=== PATIENT | male | born 1975 | race African-American/Black ===

== ENCOUNTER 2022-12-10 16:44 | Emergency (ER) | payer MEDICAID, OTHER, SELFPAY ==
[2022-12-10 17:27] VITALS: BP 139/86; PULSE 92; RESP 18; TEMP 36.8; O2SAT 96; BMI 38.2
--- NOTE | 2022-12-10 17:30 | ED_ITS ---
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 Patient reports he has had the rash on and off for 3 years. He had when he was in [place] as well as abdomen her public. He states he has had multiple tests and ?they could not tell me what it is. ? Patient reports that currently the rash has been there for the last 3 days. He states it does not really itch or hurt Denies any urethral discharge No testicular pain or swelling Denies any new sexual partners <Vernon Strickland - Last Filed: 12/10/22 20:48> Related Data Home medications: Previous Rx's Medication Instructions Recorded valacyclovir 1 gram tablet 1,000 mg PO TID #21 tabs 12/10/22 <GABBI Santamaria - Last Filed: 12/10/22 17:31> Allergies/Adverse reactions: Allergies Allergy/AdvReac Type Severity Reaction Status Date / Time No Known Allergies Allergy Verified 12/10/22 17:28 <GABBI Santamaria - Last Filed: 12/10/22 17:31> Review of Systems Constitutional: Constitutional: Reports as per HPI, Denies chills and Denies fever(s) <Vernon Strickland - Last Filed: 12/10/22 20:48> Respiratory: Respiratory: Denies cough <Vernon Strickland - Last Filed: 0 12/10/22 20:48> Gastrointestinal: Gastrointestinal: Denies abdominal pain, Denies constipation and Denies vomiting <Vernon Strickland - Last Filed: 12/10/22 20:48> Integumentary/Breasts: Comments: Reports rash to penis <Vernon Strickland - Last Filed: 12/10/22 20:48> Neurologic: Denies focal weakness <Vernon Strickland - Last Filed: 12/10/22 20:48> PMFSH Social History Social History: Social History Advance Directives: No Advance Directives Information Provided: No <GABBI Santamaria - Last Filed: 12/10/22 17:31> Physical Exam Vital Signs: Vital Signs: Last Vital Signs Temp 98.2 F 12/10/22 17:27 Pulse 92 12/10/22 17:27 Resp 18 12/10/22 17:27 BP 139/86 12/10/22 17:27 Pulse Ox 96 12/10/22 17:27 O2 Del Method Room Air 12/10/22 17:27 BMI result Body Mass Index 38.2 <GABBI Santamaria - Last Filed: 12/10/22 17:31> Vital Signs: Last Vital Signs Temp 98.2 F 12/10/22 17:27 Pulse 92 12/10/22 17:27 Resp 18 12/10/22 17:27 BP 139/86 12/10/22 17:27 Pulse Ox 96 12/10/22 17:27 O2 Del Method Room Air 12/10/22 17:27 BMI result Body Mass Index 38.2 <Vernon Strickland - Last Filed: 12/10/22 20:48> Const: General: healthy appearing, comfortable, no acute distress, alert and awake <Vernon Strickland - Last Filed: 12/10/22 20:48> Nutritional Appearance: well nourished <Vernon Strickland - Last Filed: 12/10/22 20:48> Orientation/consciousness: patient oriented x3 <Vernon Strickland - Last Filed: 12/10/22 20:48> HEENT: Head: Yes normocephalic and Yes atraumatic <Vernon Strickland - Last Filed: 12/10/22 20:48> Resp: Effort & Inspection: normal respiratory effort, able to speak in complete sentences, no audible wheezes and not labored <Vernon Strickland - Last Filed: 12/10/22 20:48> Auscultation: clear to auscultation bilaterally <Vernon Strickland - Last Filed: 12/10/22 20:48> : Other: There are several skin colored vesicles on the dorsal surface of the penile shaft. No surrounding erythema, no discoloration. No penile discharge. No edema, no testicular tenderness or edema <Vernon Strickland - Last Filed: 12/10/22 20:48> Neuro: General: patient oriented x3 <Vernon Strickland - Last Filed: 12/10/22 20:48> Cognition (Neuro): normal cognition <Vernon Strickland - Last Filed: 12/10/22 20:48> Course Course Course Narrative: EVER-17:30pm - 47yoM who is [place]-speaking presenting to the ER with complaints of lesions/bump to the penile area for the past 3-4 days. Reports that he has had this in the past and has been worked up for although they never told him what it is. He denies any other symptoms related to this. Plan: Labs including syphilis, herpes, UA and gonorrhea chlamydia urine ordered at this time. Patient to be seen in [facility]. <GABBI Santamaria - Last Filed: 12/10/22 17:31> Medical Decision Making Medical Decision Making [facility] Narrative: The patient was tested for numerous STIs. His rash is mild. He will be treated for herpes simplex pending results due to the general vesicles. <Vernon Strickland - Last Filed: 12/10/22 20:48> Differential Diagnosis Herpes simplex virus Gonorrhea Chlamydia Molluscum contagiosum Syphilis <Vernon Strickland - Last Filed: 12/10/22 20:48> Lab Data Result Diagrams: 12/10/22 17:51 12/10/22 17:51 <GABBI Santamaria - Last Filed: 12/10/22 17:31> Labs: Lab Results 12/10/22 12/10/22 12/10/22 Range/Units 17:50 17:51 17:51 WBC 7.5 (4.8-10.8) X10*3/uL RBC 4.46 L (4.60-5.80) X10*6/uL Hgb 14.3 (14.0-18.0) g/dl Hct 42.9 (42.0-52.0) % MCV 96.2 (80.0-98.0) fL MCH 32.1 (27.0-33.0) pg MCHC 33.3 (31.0-36.0) g/dl RDW 12.2 (11.0-16.0) % Plt Count 226 (160-400) X10*3/uL MPV 10.4 (9.4-12.4) fL Immature Gran % (Auto) 0.3 (0.0-0.4) % Neut % (Auto) 46.8 (45-73) % Lymph % (Auto) 41.2 H (20-40) % [place] % (Auto) 9.3 (2-11) % Eos % (Auto) 1.9 (0-4) % Baso % (Auto) 0.5 (0-2) % Lymph # (Auto) 3.1 (1.2-4.9) X10*3/uL [place] # (Auto) 0.7 (0.1-1.2) X10*3/uL Eos # (Auto) 0.1 (0.0-0.4) X10*3/uL Baso # (Auto) 0.0 (0.0-0.2) X10*3/uL Abs Immat Gran (auto) 0.02 (0.00-0.03) X10*3/uL Absolute Neuts (auto) 3.5 (2.0-8.3) x10*3/uL Absolute Nucleated RBC 0.000 (0.0-0.012) X10*3/uL Nucleated RBC % (auto) 0.0 (0.0-0.2) /100WBC Sodium 139 (135-145) mmol/L Potassium 4.5 (3.3-5.1) mmol/L Chloride 105 (96-108) mmol/L Carbon Dioxide 23 (22-29) mmol/L Anion Gap 16 (12-20) BUN 19 H (9-16) mg/dL Creatinine 1.15 (0.5-1.4) mg/dL Estim Creat Clear Calc 93.2 Estimated GFR > 60 Random Glucose 103 (60-115) mg/dL Calcium 9.6 (8.4-10.2) mg/dL Magnesium 2.0 (1.6-2.6) mg/dL Total Bilirubin 0.9 (0.0-1.0) mg/dL AST 36 (5-37) U/L ALT 40 (0-40) U/L Alkaline Phosphatase 55 (39-117) U/L Total Protein 7.8 (6.5-8.0) g/dL Albumin 4.5 (3.5-5.0) g/dL Urine Color Yellow Urine Appearance Clear Urine pH 8.0 (5.0-9.0) Ur Specific [place] 1.020 (1.005-1.025) Urine Protein Negative (Neg-Trace) mg/dL Urine Glucose (UA) Negative (Negative) mg/dL Urine Ketones Negative (Negative) mg/dL Urine Blood Negative (Negative) Urine Nitrite Negative (Negative) Ur Leukocyte Esterase Negative (Negative) <GABBI Santamaria - Last Filed: 12/10/22 17:31> Lab Results 12/10/22 12/10/22 12/10/22 Range/Units 17:50 17:51 17:51 WBC 7.5 (4.8-10.8) X10*3/uL RBC 4.46 L (4.60-5.80) X10*6/uL Hgb 14.3 (14.0-18.0) g/dl Hct 42.9 (42.0-52.0) % MCV 96.2 (80.0-98.0) fL MCH 32.1 (27.0-33.0) pg MCHC 33.3 (31.0-36.0) g/dl RDW 12.2 (11.0-16.0) % Plt Count 226 (160-400) X10*3/uL MPV 10.4 (9.4-12.4) fL Immature Gran % (Auto) 0.3 (0.0-0.4) % Neut % (Auto) 46.8 (45-73) % Lymph % (Auto) 41.2 H (20-40) % [place] % (Auto) 9.3 (2-11) % Eos % (Auto) 1.9 (0-4) % Baso % (Auto) 0.5 (0-2) % Lymph # (Auto) 3.1 (1.2-4.9) X10*3/uL [place] # (Auto) 0.7 (0.1-1.2) X10*3/uL Eos # (Auto) 0.1 (0.0-0.4) X10*3/uL Baso # (Auto) 0.0 (0.0-0.2) X10*3/uL Abs Immat Gran (auto) 0.02 (0.00-0.03) X10*3/uL Absolute Neuts (auto) 3.5 (2.0-8.3) x10*3/uL Absolute Nucleated RBC 0.000 (0.0-0.012) X10*3/uL Nucleated RBC % (auto) 0.0 (0.0-0.2) /100WBC Sodium 139 (135-145) mmol/L Potassium 4.5 (3.3-5.1) mmol/L Chloride 105 (96-108) mmol/L Carbon Dioxide 23 (22-29) mmol/L Anion Gap 16 (12-20) BUN 19 H (9-16) mg/dL Creatinine 1.15 (0.5-1.4) mg/dL Estim Creat Clear Calc 93.2 Estimated GFR > 60 Random Glucose 103 (60-115) mg/dL Calcium 9.6 (8.4-10.2) mg/dL Magnesium 2.0 (1.6-2.6) mg/dL Total Bilirubin 0.9 (0.0-1.0) mg/dL AST 36 (5-37) U/L ALT 40 (0-40) U/L Alkaline Phosphatase 55 (39-117) U/L Total Protein 7.8 (6.5-8.0) g/dL Albumin 4.5 (3.5-5.0) g/dL Urine Color Yellow Urine Appearance Clear Urine pH 8.0 (5.0-9.0) Ur Specific [place] 1.020 (1.005-1.025) Urine Protein Negative (Neg-Trace) mg/dL Urine Glucose (UA) Negative (Negative) mg/dL Urine Ketones Negative (Negative) mg/dL Urine Blood Negative (Negative) Urine Nitrite Negative (Negative) Ur Leukocyte Esterase Negative (Negative) <Vernon O'Musselshell - Last Filed: 12/10/22 20:48> Discharge Plan Discharge Clinical Impression: Penile rash <GABBI Santamaria - Last Filed: 12/10/22 17:31> Patient Disposition: Home, Self-Care <GABBI Santamaria - Last Filed: 12/10/22 17:31> Instructions: Acute Rash (ED) <GABBI Santamaria - Last Filed: 12/10/22 17:31> Additional Instructions: Your test for multiple sexually transmitted infections including gonorrh ea, chlamydia, herpes, syphilis. We will call you if any of your results are positive. In the meantime take the valacyclovir which is an antiviral. If it is herpes it will help prevent the spread while we are waiting for the results <GABBI Santamaria - Last Filed: 12/10/22 17:31> Prescriptions: New valacyclovir 1 gram tablet 1,000 mg PO TID Qty: 21 0RF <GABBI Santamaria - Last Filed: 12/10/22 17:31> Interventions: ED Discharge Assessment Last Done: 12/10/22 20:29 <GABBI Santamaria - Last Filed: 12/10/22 17:31> Discharge Date/Time: 12/10/22 20:29 <GABBI Santamaria - Last Filed: 12/10/22 17:31>
[2022-12-10 17:58] LABS: MANUAL DIFF FLAG NO
[2022-12-10 18:01] LABS: Basophils Percent Auto 0.5 % (0-2); Eosinophils Absolute Auto 0.1 X10*3/uL (0.0-0.4); Eosinophils Percent Auto 1.9 % (0-4); Hematocrit 42.9 % (42.0-52.0); Hemoglobin 14.3 g/dl (14.0-18.0); Imm Gran Abs Auto 0.02 X10*3/uL (0.00-0.03); Imm Gran Pct Auto 0.3 % (0.0-0.4); Lymphocytes Absolute Auto 3.1 X10*3/uL (1.2-4.9); Lymphocytes Percent Auto 41.2 % (20-40); Mean Corpuscular HGB Conc 33.3 g/dl (31.0-36.0); Mean Corpuscular Hemoglobin 32.1 pg (27.0-33.0); Mean Corpuscular Volume 96.2 fL (80.0-98.0); Mean Platelet Volume 10.4 fL (9.4-12.4); Monocytes Absolute Auto 0.7 X10*3/uL (0.1-1.2); Monocytes Percent Auto 9.3 % (2-11); Neutrophils Absolute Auto 3.5 x10*3/uL (2.0-8.3); Neutrophils Percent Auto 46.8 % (45-73); Platelet Count 226 X10*3/uL (160-400); Red Blood Count 4.46 X10*6/uL (4.60-5.80); Red Cell Distribution Width 12.2 % (11.0-16.0); White Blood Count 7.5 X10*3/uL (4.8-10.8)
[2022-12-10 18:02] LABS: Appearance Urine Clear; Color Urine Yellow; Glucose Urine UA Negative (Negative); Leukocyte Esterase Urine Negative (Negative); Nitrite Urine Negative (Negative); Urine Blood Negative (Negative); Urine Ketones Negative (Negative); Urine Protein Negative (Neg-Trace)
[2022-12-10 18:31] LABS: Alanine Aminotransferase 40 U/L (0-40); Albumin Level 4.5 g/dL (3.5-5.0); Alkaline Phosphatase 55 U/L (39-117); Anion Gap 16 (12-20); Aspartate Amino Transferase 36 U/L (5-37); Bilirubin Total 0.9 mg/dL (0.0-1.0); Blood Urea Nitrogen 19 mg/dL (9-16); Calcium 9.6 mg/dL (8.4-10.2); Carbon Dioxide 23 mmol/L (22-29); Chloride 105 mmol/L (96-108); Creatinine Clr Calc Pharmacy 93.2; Estimated Glomerular Filt Rate > 60; Glucose Random 103 mg/dL (60-115); Potassium 4.5 mmol/L (3.3-5.1); Sodium 139 mmol/L (135-145); Total Protein 7.8 g/dL (6.5-8.0)
[2022-12-11 04:10] LABS: Syphilis Screen Nonreactive (Nonreactive)
[2022-12-11 05:45] LABS: CT PCR NOT DETECTED (Not Detect.); NG PCR NOT DETECTED (Not Detect.)
--- NOTE | 2022-12-16 09:41 | ED.MALEGU ---
HPI - Male Genitourinary General Chief complaint: Urogenital-Male Stated complaint: abcess Time Seen by Provider: 12/10/22 19:07 Source: patient, RN notes reviewed and sign language interpreter Mode of arrival: ambulatory Limitations: language barrier Related Data Previous Rx's Medication Instructions Recorded valacyclovir 1 gram tablet 1,000 mg PO TID #21 tabs 12/10/22 Allergies Allergy/AdvReac Type Severity Reaction Status Date / Time No Known Allergies Allergy Verified 12/10/22 17:28 [facility] Social History Social History Advance Directives: No Advance Directives Information Provided: No Physical Exam Vital Signs: Vital Signs: Last Vital Signs Temp 98.2 F 12/10/22 17:27 Pulse 92 12/10/22 17:27 Resp 18 12/10/22 17:27 BP 139/86 12/10/22 17:27 Pulse Ox 96 12/10/22 17:27 O2 Del Method Room Air 12/10/22 17:27 BMI result Body Mass Index 38.2 Course Course Course Narrative: while doing routine lab follow-up, 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 I called the patient with the assistance of a hourly sign language interpreter to explain the diagnosis at the patient's treatment regimen does not change. All questions were answered Medical Decision Making Lab Data 12/10/22 17:51 12/10/22 17:51 Labs: Lab Results 12/10/22 12/10/22 12/10/22 Range/Units 17:50 17:50 17:51 WBC 7.5 (4.8-10.8) X10*3/uL RBC 4.46 L (4.60-5.80) X10*6/uL Hgb 14.3 (14.0-18.0) g/dl Hct 42.9 (42.0-52.0) % MCV 96.2 (80.0-98.0) fL MCH 32.1 (27.0-33.0) pg MCHC 33.3 (31.0-36.0) g/dl RDW 12.2 (11.0-16.0) % Plt Count 226 (160-400) X10*3/uL MPV 10.4 (9.4-12.4) fL Immature Gran % (Auto) 0.3 (0.0-0.4) % Neut % (Auto) 46.8 (45-73) % Lymph % (Auto) 41.2 H (20-40) % [place] % (Auto) 9.3 (2-11) % Eos % (Auto) 1.9 (0-4) % Baso % (Auto) 0.5 (0-2) % Lymph # (Auto) 3.1 (1.2-4.9) X10*3/uL [place] # (Auto) 0.7 (0.1-1.2) X10*3/uL Eos # (Auto) 0.1 (0.0-0.4) X10*3/uL Baso # (Auto) 0.0 (0.0-0.2) X10*3/uL Abs Immat Gran (auto) 0.02 (0.00-0.03) X10*3/uL Absolute Neuts (auto) 3.5 (2.0-8.3) x10*3/uL Absolute Nucleated RBC 0.000 (0.0-0.012) X10*3/uL Nucleated RBC % (auto) 0.0 (0.0-0.2) /100WBC Sodium (135-145) mmol/L Potassium (3.3-5.1) mmol/L Chloride (96-108) mmol/L Carbon Dioxide (22-29) mmol/L Anion Gap (12-20) BUN (9-16) mg/dL Creatinine (0.5-1.4) mg/dL Estim Creat Clear Calc Estimated GFR Random Glucose (60-115) mg/dL Calcium (8.4-10.2) mg/dL Magnesium (1.6-2.6) mg/dL Total Bilirubin (0.0-1.0) mg/dL AST (5-37) U/L ALT (0-40) U/L Alkaline Phosphatase (39-117) U/L Total Protein (6.5-8.0) g/dL Albumin (3.5-5.0) g/dL Urine Color Yellow Urine Appearance Clear Urine pH 8.0 (5.0-9.0) Ur Specific [place] 1.020 (1.005-1.025) Urine Protein Negative (Neg-Trace) mg/dL Urine Glucose (UA) Negative (Negative) mg/dL Urine Ketones Negative (Negative) mg/dL Urine Blood Negative (Negative) Urine Nitrite Negative (Negative) Ur Leukocyte Esterase Negative (Negative) T.pallidum Ab (EIA) (Nonreactive) Chlam trachomat DNA PCR NOT DETECTED (Not Detect.) HSV Culture & Type N.gonorrhoeae DNA (PCR) NOT DETECTED (Not Detect.) 12/10/22 12/10/22 12/10/22 Range/Units 17:51 17:51 19:20 WBC (4.8-10.8) X10*3/uL RBC (4.60-5.80) X10*6/uL Hgb (14.0-18.0) g/dl Hct (42.0-52.0) % MCV (80.0-98.0) fL MCH (27.0-33.0) pg MCHC (31.0-36.0) g/dl RDW (11.0-16.0) % Plt Count (160-400) X10*3/uL MPV (9.4-12.4) fL Immature Gran % (Auto) (0.0-0.4) % Neut % (Auto) (45-73) % Lymph % (Auto) (20-40) % [place] % (Auto) (2-11) % Eos % (Auto) (0-4) % Baso % (Auto) (0-2) % Lymph # (Auto) (1.2-4.9) X10*3/uL [place] # (Auto) (0.1-1.2) X10*3/uL Eos # (Auto) (0.0-0.4) X10*3/uL Baso # (Auto) (0.0-0.2) X10*3/uL Abs Immat Gran (auto) (0.00-0.03) X10*3/uL Absolute Neuts (auto) (2.0-8.3) x10*3/uL Absolute Nucleated RBC (0.0-0.012) X10*3/uL Nucleated RBC % (auto) (0.0-0.2) /100WBC Sodium 139 (135-145) mmol/L Potassium 4.5 (3.3-5.1) mmol/L Chloride 105 (96-108) mmol/L Carbon Dioxide 23 (22-29) mmol/L Anion Gap 16 (12-20) BUN 19 H (9-16) mg/dL Creatinine 1.15 (0.5-1.4) mg/dL Estim Creat Clear Calc 93.2 Estimated GFR > 60 Random Glucose 103 (60-115) mg/dL Calcium 9.6 (8.4-10.2) mg/dL Magnesium 2.0 (1.6-2.6) mg/dL Total Bilirubin 0.9 (0.0-1.0) mg/dL AST 36 (5-37) U/L ALT 40 (0-40) U/L Alkaline Phosphatase 55 (39-117) U/L Total Protein 7.8 (6.5-8.0) g/dL Albumin 4.5 (3.5-5.0) g/dL Urine Color Urine Appearance Urine pH (5.0-9.0) Ur Specific [place] (1.005-1.025) Urine Protein (Neg-Trace) mg/dL Urine Glucose (UA) (Negative) mg/dL Urine Ketones (Negative) mg/dL Urine Blood (Negative) Urine Nitrite (Negative) Ur Leukocyte Esterase (Negative) T.pallidum Ab (EIA) Nonreactive (Nonreactive) Chlam trachomat DNA PCR (Not Detect.) HSV Culture & Type SEE NOTE A N.gonorrhoeae DNA (PCR) (Not Detect.) Discharge Plan Discharge Clinical Impression: Penile rash Patient Disposition: Home, Self-Care Instructions: Acute Rash (ED) Additional Instructions: Your test for multiple sexually transmitted infections including gonorrhea, chlamydia, herpes, syphilis. We will call you if any of your results are positive. In the meantime take the valacyclovir which is an antiviral. If it is herpes it will help prevent the spread while we are waiting for the results Prescriptions: New valacyclovir 1 gram tablet 1,000 mg PO TID Qty: 21 0RF Interventions: ED Discharge Assessment Last Done: 12/10/22 20:29 Discharge Date/Time: 12/10/22 20:29
[2022-12-17 18:28] LABS: HSV 1 IgM IFA Negative (Negative); HSV 2 IgM IFA Negative (Negative)
== END 2022-12-10 20:29 | disposition home or self-care (01) ==
PROVIDERS: Physician Assistant Medical; Emergency Provider Emergency Medicine Emergency Medical Services
DX: A60.01 Herpesviral infection of penis (principal)
CPT/HCPCS: 0353U; 36415; 80053; 81003; 83735; 85025; 86695; 86696; 86780; 87255; 99282; 99283

== ENCOUNTER 2023-03-06 19:24 | Emergency (ER) | payer MEDICAID, OTHER, SELFPAY ==
--- NOTE | ~2023-03-06 | CT_ITS ---
EXAMINATION: CT SOFT TISSUE NECK WITH CONTRAST CLINICAL INFORMATION: Bilateral tonsillar swelling/pain COMPARISON: None. TECHNIQUE: Following the administration of 60 mL of Omnipaque 300 intravenous contrast, helical imaging was performed in the axial plane with generation of coronal and sagittal reformatted images. This CT examination was performed using dose optimization techniques as appropriate, variously including the following: *Automated exposure control. *Adjustment of mA and/or kV according to patient size (this includes techniques or standardized protocols for targeted exams where dose is matched to indication/reason for exam; i.e. extremities or head). *Use of iterative reconstruction technique. DLP: 911 mGy-cm. FINDINGS: There is enlargement and heterogeneous striated enhancement of the bilateral palatine tonsils suggestive of acute tonsillitis with resultant significant effacement of the oropharyngeal airway. No peritonsillar abscess. No infectious/cellulitic changes within the deep neck spaces. The oral cavity and hypopharynx are unremarkable. The vocal cords are opposed at time of imaging limiting assessment of the glottis however the supraglottic and subglottic airway is widely patent. Presumably reactive enlarged bilateral level 2A lymphadenopathy, greater on the right measuring up to 2.3 cm in long axis. Adenoidal tonsillar hyperplasia abutting the nasopharyngeal surface of the soft palate focally obstructing the airway at this level. Trace paranasal sinus mucosal disease with small retention cysts/polyps in the bilateral maxillary sinuses. No mastoid effusion. The temporomandibular joints are normal. The parotid glands are normal. Nonspecific large amount of the bilateral submandibular glands. The thyroid gland is normal. 1.0 cm enhancing nodule inferior to the right lobe of the thyroid in the paratracheal region which may reflect a parathyroid adenoma and can be correlated with biochemical testing for the possibility of primary hyperparathyroidism or a hyperenhancing lymph node. The partially visualized lung apices are clear. The left vertebral artery arises directly from the aortic arch. Retropharyngeal course of the bilateral internal carotid arteries. The osseous structures are intact without suspicious focal lesion. The imaged portions of the brain parenchyma are unremarkable. CT/CT soft tissue neck w IV con IMPRESSION: Findings of acute tonsillitis with significant effacement of the oropharyngeal airway. No peritonsillar abscess. No infectious/cellulitic changes within the deep neck spaces. Presumably reactive enlarged bilateral level 2A lymphadenopathy, greater on the right measuring up to 2.3 cm in long axis, however can be followed with soft tissue ultrasound following resolution of infectious symptoms to ensure appropriate expected evolution. 1.0 cm enhancing nodule inferior to the right lobe of the thyroid in the paratracheal region which may reflect a parathyroid adenoma and can be correlated with biochemical testing for the possibility of primary hyperparathyroidism or a hyperenhancing lymph node.
[2023-03-06 19:37] VITALS: BP 114/72; PULSE 92; RESP 16; TEMP 37.2; O2SAT 96; BMI 360.3
--- NOTE | 2023-03-06 21:05 | ED_ITS ---
HPI - General Adult General Chief complaint: General Medical Stated complaint: Swollen throat/fever/dizziness Time Seen by Provider: 03/06/23 20:43 Source: patient Mode of arrival: ambulatory Limitations: no limitations History of Present Illness HPI narrative: 47-year-old male without significant medical history presents the emergency department for evaluation of severe sore throat for the past few days, fatigue, malaise, myalgias, diffuse headache, changes in voice. Patient tells me this initially started 3 days ago and has been progressively worsening, reports is home sick with similar symptoms. Patient tells me that his voice does not sound normal, and he is in a lot of pain. Patient denies chest pain, shortness of breath, nausea, vomiting, abdominal pain, headache, vision changes, dizziness and weakness. Related Data Previous Rx's Medication Instructions Recorded valacyclovir 1 gram tablet 1,000 mg PO TID #21 tabs 12/10/22 Magic Mouthwash 5 ml PO TID #240 mL 03/07/23 Diphen/Lido/Antacid 1:1:1 240 mL suspension amoxicillin 875 mg-potassium 1 tab PO BID 10 days #20 tabs 03/07/23 clavulanate 125 mg tablet prednisone 20 mg tablet 40 mg PO DAILY 5 days #10 tabs 03/07/23 Allergies Allergy/AdvReac Type Severity Reaction Status Date / Time No Known Allergies Allergy Verified 12/10/22 17:28 Review of Systems Review of Systems: Constitutional : No Weight loss, No Fever, No Chills, No Fatigue, No Malaise ENT/Mouth : + sore throat, No Rhinorrhea Eyes: No Eye Pain, No Swelling, No Redness Cardiovascular : No Chest Pain, No SOB, No Dyspnea on Exertion, No Orthopnea, No Edema, No Palpitations Respiratory : No Cough, No Sputum, No Wheezing Gastrointestinal : No Nausea, No Vomiting, No Diarrhea, No Constipation, No abdominal Pain, No Hematochezia, No Melena Genitourinary : No Dysuria, No Urinary Frequency, No Hematuria, Musculoskeletal : No joint pain, No Myalgias, No Joint Swelling Skin : No Skin Lesions, No rash Neuro : No Weakness, No Numbness, No Dizziness, No Headache Psych : No Anxiety/Panic, No Depression All other systems reviewed and are negative Yes all other systems are reviewed and are negative PMFSH Past Medical History Attestation statement: The following information was validated with the patient. Source: old records reviewed and nursing notes reviewed Social History Social History Advance Directives: No Advance Directives Information Provided: No Physical Exam ED Vital Signs: Vital Signs - 24 hr 03/06/23 19:37 Temperature 98.9 F Pulse Rate 92 Respiratory Rate 16 Blood Pressure 114/72 Pulse Oximetry 96 Oxygen Delivery Method Room Air BMI result Body Mass Index 360.3 vss Appearance: Alert.? Oriented X3.? No acute distress.? Head: Normocephalic, atraumatic, no step-offs or deformities Eyes: Pupils equal, round and reactive to light.? ENT: Posterior pharynx with erythema, bilateral tonsils erythematous, edematous with large amounts of exudates, tonsils are touching. Uvula is being deviated back secondary to tonsillar swelling. Positive trismus. Patient speaking in full sentences controlling secretions well. Neck: Normal inspection.? Neck supple.? CVS: Normal heart rate and rhythm.? Pulses normal.? Respiratory: No respiratory distress.? Breath sounds normal.? Abdomen: Soft and nontender.? Skin: Skin warm and dry.? Normal skin color.? Normal skin turgor.? Extremities: No lower extremity edema.? No calf ttp. 5/5 strength to bilateral upper and lower extremities Neuro: Oriented X 3.? No motor deficit.? No sensory deficit. CN 2-12 intact Course Reevaluation(s) Reevaluation #1: Patient's CBC with elevated white blood cell count, chemistry no acute findings requiring intervention. Bilirubin is elevated 1.8 however no abdominal tender ness to palpation. At this time I ordered blood cultures, lactic acid. Patient strep positive. Will give fluids, clindamycin. CT soft tissue neck without signs of abscess however significant tonsillitis. I did discuss this case with hospitalist for admission who will evaluate patient. Time: 23:47 Reevaluation #2: Patient was evaluated by hospitalist, recommends p.o. antibiotics and steroids. No need for hospital admission as patient is tolerating p.o., reports significant improvement with Decadron. Educated patient on diagnosis and treatment plan, answered all question, patient verbalizes understanding. At this time patient will be discharged home, advised to return with new or worsening symptoms. Educated on worrisome signs and symptoms and when to return. At this time I feel comfortable discharge home. Time: 00:13 Reevaluation #3: Tollerating PO at time of DC Medications Administered Discontinued Medications Generic Name Dose Route Start Last Admin Trade Name Ben PRN Reason Stop Dose Admin Dexamethasone Sodium Phosphate 10 mg 03/06/23 21:31 03/06/23 21:55 Dexamethasone Sod Phosphate 10 Mg/Ml Vial IVPUSH 03/06/23 21:32 10 mg ONCE ONE Administration Iohexol 60 ml 03/06/23 22:46 03/06/23 22:47 Iohexol 350 Mg/Ml 100 Ml Infus..Btl IV 03/06/23 22:47 60 ml ONCE ONE Administration Lidocaine HCl 15 ml 03/06/23 21:47 03/06/23 22:10 Lidocaine Hcl Viscous 2 % 15 Ml Solution MUCOUS MEM 03/06/23 21:48 15 ml ONCE ONE Administration Medical Decision Making Medical Decision Making [facility] Narrative: 47-year-old male presents with complaints of sore throat worsening over the past 3 days, also reports viral symptoms, home with similar symptoms. Physical examination significant for Posterior pharynx with erythema, bilateral tonsils erythematous, edematous with large amounts of exudates, tonsils are touching. Uvula is being deviated back secondary to tonsillar swelling. Positive trismus. Patient speaking in full sentences controlling secretions well. Neuro nonfocal. Cerebellar intact. NIH stroke scale 0. Concern for strep throat versus mononucleosis. Unlikely that this is a peritonsillar abscess however will rule this out. Will rule out retropharyngeal abscess as well. Unlikely epiglottitis. Plan at this time viral testing, basic labs, CT soft tissue neck with IV contrast, will give Decadron and discuss white 0. Differential Diagnosis Differential Diagnoses: The differential diagnosis associated with the presentation includes Concern for strep throat versus mononucleosis. Unlikely that this is a peritonsillar abscess however will rule this out. Will rule out retropharyngeal abscess as well. Unlikely epiglottitis. Admission/Observation Consideration of admission/observation: Escalation of care including admission/observation considered Possible Lab Data [facility] Lab Attestation statement: I reviewed the patient's lab results. 03/06/23 22:05 03/06/23 22:05 Labs: Lab Results 03/06/23 03/06/2303/06/23 Range/Units 21:14 21:14 21:14 WBC (4.8-10.8) X10*3/uL RBC (4.60-5.80) X10*6/uL Hgb (14.0-18.0) g/dl Hct (42.0-52.0) % MCV (80.0-98.0) fL MCH (27.0-33.0) pg MCHC (31.0-36.0) g/dl RDW (11.0-16.0) % Plt Count (160-400) X10*3/uL MPV (9.4-12.4) fL Immature Gran % (Auto) (0.0-0.4) % Neut % (Auto) (45-73) % Lymph % (Auto) (20-40) % Craven % (Auto) (2-11) % Eos % (Auto) (0-4) % Baso % (Auto) (0-2) % Lymph # (Auto) (1.2-4.9) X10*3/uL Craven # (Auto) (0.1-1.2) X10*3/uL Eos # (Auto) (0.0-0.4) X10*3/uL Baso # (Auto) (0.0-0.2) X10*3/uL Abs Immat Gran (auto) (0.00-0.03) X10*3/uL Absolute Neuts (auto) (2.0-8.3) x10*3/uL Absolute Nucleated RBC (0.0-0.012) X10*3/uL Nucleated RBC % (auto) (0.0-0.2) /100WBC Sodium (135-145) mmol/L Potassium (3.3-5.1) mmol/L Chloride (96-108) mmol/L Carbon Dioxide (22-29) mmol/L Anion Gap (12-20) BUN (9-16) mg/dL Creatinine (0.5-1.4) mg/dL Estim Creat Clear Calc Estimated GFR Random Glucose (60-115) mg/dL Calcium (8.4-10.2) mg/dL Total Bilirubin (0.0-1.0) mg/dL AST (5-37) U/L ALT (0-40) U/L Alkaline Phosphatase (39-117) U/L Total Protein (6.5-8.0) g/dL Albumin (3.5-5.0) g/dL COVID-19 (KAREN) Negative (Negative) COVID-19 Clin Com See Note Monoscreen (Negative) Influenza Type A (ALEJANDRA) Negative (Negative) Influenza Type B (ALEJANDRA) Negative (Negative) Influenza A & B Note See Note S. pyogenes GrpA ALEJANDRA Positive A (Negative) 03/06/23 03/06/23 03/06/23 Range/Units 21:14 22:05 22:05 WBC 13.3 H (4.8-10.8) X10*3/uL RBC 4.40 L (4.60-5.80) X10*6/uL Hgb 13.9 L (14.0-18.0) g/dl Hct 40.7 L (42.0-52.0) % MCV 92.5 (80.0-98.0) fL MCH 31.6 (27.0-33.0) pg MCHC 34.2 (31.0-36.0) g/dl RDW 12.1 (11.0-16.0) % Plt Count 202 (160-400) X10*3/uL MPV 9.9 (9.4-12.4) fL Immature Gran % (Auto) 0.3 (0.0-0.4) % Neut % (Auto) 66.4 (45-73) % Lymph % (Auto) 21.4 (20-40) % Craven % (Auto) 10.6 (2-11) % Eos % (Auto) 1.0 (0-4) % Baso % (Auto) 0.3 (0-2) % Lymph # (Auto) 2.8 (1.2-4.9) X10*3/uL Craven # (Auto) 1.4 H (0.1-1.2) X10*3/uL Eos # (Auto) 0.1 (0.0-0.4) X10*3/uL Baso # (Auto) 0.0 (0.0-0.2) X10*3/uL Abs Immat Gran (auto) 0.04 H (0.00-0.03) X10*3/uL Absolute Neuts (auto) 8.8 H (2.0-8.3) x10*3/uL Absolute Nucleated RBC 0.000 (0.0-0.012) X10*3/uL Nucleated RBC % (auto) 0.0 (0.0-0.2) /100WBC Sodium 138 (135-145) mmol/L Potassium 4.2 (3.3-5.1) mmol/L Chloride 108 (96-108) mmol/L Carbon Dioxide 24 (22-29) mmol/L Anion Gap 10 L (12-20) BUN 16 (9-16) mg/dL Creatinine 0.98 (0.5-1.4) mg/dL Estim Creat Clear Calc 615.4 Estimated GFR > 60 Random Glucose 93 (60-115) mg/dL Calcium 8.9 D (8.4-10.2) mg/dL Total Bilirubin 1.8 H (0.0-1.0) mg/dL AST 30 (5-37) U/L ALT 32 (0-40) U/L Alkaline Phosphatase 54 (39-117) U/L Total Protein 7.6 (6.5-8.0) g/dL Albumin 4.4 (3.5-5.0) g/dL COVID-19 (KAREN) (Negative) COVID-19 Clin Com Monoscreen Negative (Negative) Influenza Type A (ALEJANDRA) (Negative) Influenza Type B (ALEJANDRA) (Negative) Influenza A & B Note S. pyogenes GrpA ALEJANDRA (Negative) Independent Interpretation I performed an independent interpretation of an: CT Scan Radiology Impression Discussion of test interpretation with radiology: I have reviewed the radio logist's reading. Core Measures AMI core measures followed: Yes Measure exclusions: not indicated Critical Care Time Critical Care Time Critical Care Time: No Discharge Plan Discharge Clinical Impression: Strep pharyngitis Patient Disposition: Home, Self-Care Instructions: Pharyngitis (ED), Strep Throat (ED), Strep Throat (DC) Additional Instructions: Take your medications as prescribed. If you were prescribed antibiotics today, it is important that you take your medication to their entirety, do not skip any doses, do not finish them early. Follow-up with your primary care provider this week. Return to the emergency department with new or worsening symptoms. Such as fevers, chills, chest pain, shortness of breath, nausea, vomiting, dizziness, headache, vision changes, lethargy In case of emergency call 911 ?CT/CT soft tissue neck w IV con IMPRESSION: ? Findings of acute tonsillitis with significant effacement of the oropharyngeal airway. No peritonsillar abscess. No infectious/cellulitic changes within the deep neck spaces. Presumably reactive enlarged bilateral level 2A lymphadenopathy, greater on the right measuring up to 2.3 cm in long axis, however can be followed with soft tissue ultrasound following resolution of infectious symptoms to ensure appropriate expected evolution. ? 1.0 cm enhancing nodule inferior to the right lobe of the thyroid in the paratracheal region which may reflect a parathyroid adenoma and can be correlated with biochemical testing for the possibility of primary hyperparathyroidism or a hyperenhancing lymph node. [place] camilo medicamentos seg?n lo prescrito. Si le recetaron antibi?ticos hoy, es importante que tome fernandez medicamento en fernandez totalidad, no se salte ninguna dosis, no los termine antes de tiempo. Seguimiento con fernandez proveedor de atenci?n primaria esta semana. Regrese al departamento de emergencias con s?ntomas nuevos o que empeoran. Christy fiebre, escalofr?os, dolor de pecho, dificultad para respirar, n?useas, v?mitos, mareos, dolor de geetha, cambios en la visi?n, letargo En kathy de emergencia llama al 911 CT/CT elana de tejido blando con IV con IMPRESI?N: Hallazgos de amigdalitis aguda con borramiento significativo de la v?a a?mitchell orofar?ngea. Sin absceso periamigdalino. No cambios infecciosos/celul?ticos en los espacios profundos del elana. Presum iblemente adenopat?as reactivas agrandadas bilaterales de nivel 2A, mayores en el la derecha mide hasta 2,3 cm de eje longitudinal, sin embargo puede seguirse con ultrasonido de tejidos blandos despu?s de la resoluci?n de los s?ntomas infecciosos para garantizar jignesh adecuada evoluci?n esperada. N?dulo de 1,0 cm realzado inferior al l?bulo derecho de la tiroides en la ron?n paratraqueal que puede reflejar un adenoma paratiroideo y puede correlacionarse con pruebas bioqu?micas para la posibilidad de hiperparatiroidismo o un ganglio linf?erika hiperrealzado. Prescriptions: New amoxicillin-pot clavulanate 875-125 mg tablet 1 tab PO BID 10 Days Qty: 20 0RF prednisone 20 mg tablet 40 mg PO DAILY 5 Days Qty: 10 0RF Magic Mouthwash Diphen/Lido/Antacid 1:1:1 240 mL suspension 5 ml PO TID Qty: 240 0RF Rx Instructions: Lidocaine Viscous 2 % 80mL; diphenhydramine 12.5 mg/5 mL 80mL; aluminum-mag hydrox-simeth [id number]/5mL 80mL Swish and spit, do not swallow No Action valacyclovir 1 gram tablet 1,000 mg PO TID Qty: 21 0RF Referrals: Ty Gonzalez [Physician] - 1 day Physician,Eric Cheung [Primary Care Provider] - 2 days Stand Alone Forms: Work/School Release
[2023-03-06 21:26] LABS: IDNOW Serial# 6674DD1D; Strep A Nucleic Acid Positive (Negative)
[2023-03-06 21:35] LABS: Monotest Negative (Negative)
[2023-03-06 21:38] LABS: COVID-19 Test Negative (Negative); IDNOW Serial# BCCEAD1C
[2023-03-06 21:39] LABS: IDNOW Serial# 08D9AD1C; Influenza A Negative (Negative); Influenza B2 Negative (Negative)
[2023-03-06] MEDS: dexAMETHasone sod phosphate 10 MG/ML VIAL IVPUSH (21:55)
[2023-03-06 22:09] LABS: MANUAL DIFF FLAG NO
[2023-03-06] MEDS: Lidocaine HCl Viscous 2 % 15 ML SOLUTION MUCOUS MEM (22:10)
[2023-03-06 22:12] LABS: Basophils Percent Auto 0.3 % (0-2); Eosinophils Absolute Auto 0.1 X10*3/uL (0.0-0.4); Hematocrit 40.7 % (42.0-52.0); Hemoglobin 13.9 g/dl (14.0-18.0); Imm Gran Abs Auto 0.04 X10*3/uL (0.00-0.03); Imm Gran Pct Auto 0.3 % (0.0-0.4); Lymphocytes Absolute Auto 2.8 X10*3/uL (1.2-4.9); Lymphocytes Percent Auto 21.4 % (20-40); Mean Corpuscular HGB Conc 34.2 g/dl (31.0-36.0); Mean Corpuscular Hemoglobin 31.6 pg (27.0-33.0); Mean Corpuscular Volume 92.5 fL (80.0-98.0); Mean Platelet Volume 9.9 fL (9.4-12.4); Monocytes Absolute Auto 1.4 X10*3/uL (0.1-1.2); Monocytes Percent Auto 10.6 % (2-11); Neutrophils Absolute Auto 8.8 x10*3/uL (2.0-8.3); Neutrophils Percent Auto 66.4 % (45-73); Platelet Count 202 X10*3/uL (160-400); Red Cell Distribution Width 12.1 % (11.0-16.0); White Blood Count 13.3 X10*3/uL (4.8-10.8)
[2023-03-06 22:27] LABS: Alanine Aminotransferase 32 U/L (0-40); Albumin Level 4.4 g/dL (3.5-5.0); Alkaline Phosphatase 54 U/L (39-117); Anion Gap 10 (12-20); Aspartate Amino Transferase 30 U/L (5-37); Bilirubin Total 1.8 mg/dL (0.0-1.0); Blood Urea Nitrogen 16 mg/dL (9-16); Calcium 8.9 mg/dL (8.4-10.2); Carbon Dioxide 24 mmol/L (22-29); Chloride 108 mmol/L (96-108); Creatinine Clr Calc Pharmacy 615.4; Estimated Glomerular Filt Rate > 60; Glucose Random 93 mg/dL (60-115); Potassium 4.2 mmol/L (3.3-5.1); Sodium 138 mmol/L (135-145); Total Protein 7.6 g/dL (6.5-8.0)
[2023-03-06] MEDS: iohexoL 350 MG/ML 100 ML INFUS..BTL 60 ML IV (22:47)
[2023-03-07 00:14] VITALS: BP 129/80; PULSE 81; RESP 18; TEMP 37.3; O2SAT 100
--- NOTE | 2023-03-07 00:15 | MHC.EDTECH ---
This tech assumed care of patient at 2300, Blood cultures and Lactic drawn, Vital taken. Patient is resting comfortably at this time. Call marroquin within reach
[2023-03-07 00:33] LABS: Lactic Acid 0.7 mmol/L (0.5-2.0)
[2023-03-07] MEDS: Piperacillin Sodium/Tazobactam 3.375 GM in 0.9 % Sodium Chloride 50 ML IV (00:43)
[2023-03-07] MEDS: 0.9 % Sodium Chloride 1,000 ML 999 ML IV (00:44)
--- NOTE | 2023-03-07 00:52 | PC.NURSE ---
pt tolerating iv antibiotics abd NS
[2023-03-07 01:47] VITALS: BP 110/70; PULSE 72; RESP 18; TEMP 36.7; O2SAT 100
--- NOTE | 2023-03-07 01:54 | PC.NURSE ---
pt assessed at d/c, denies any difficulty swallowing, tolerated antibotics
--- NOTE | 2023-03-07 07:33 | PHA.MEDREC ---
Pharmacy Consult ? Medication Reconciliation Patient discharged med rec not completed.
== END 2023-03-07 02:06 | disposition home or self-care (01) ==
PROVIDERS: Physician Assistant; Emergency Provider Emergency Medicine Emergency Medical Services
DX: J02.0 Streptococcal pharyngitis (principal); Z20.822 Contact with and (suspected) exposure to COVID-19
CPT/HCPCS: 36415; 70491; 80053; 83605; 85025; 86308; 87040; 87502; 87635; 87651; 96365; 96375; 99284; J1100; J2543; Q9967